=== PATIENT | female | born 1965 | race Two or more races ===

== ENCOUNTER → 2023-05-30 13:53 | Outpatient (REF) | payer OTHER, SELFPAY | LOC: RCS 13:53 | PROVIDERS: ATTENDING PHYSICIAN Internal Medicine Cardiovascular Disease; FAMILY PHYSICIAN Family Medicine | DX: R06.02 Shortness of breath (principal) | CPT/HCPCS: 93306 ==

== ENCOUNTER → 2023-06-06 08:48 | Outpatient (REF) | payer OTHER, SELFPAY | LOC: RCS 08:48 | PROVIDERS: ATTENDING PHYSICIAN Internal Medicine Cardiovascular Disease; FAMILY PHYSICIAN Family Medicine | DX: R06.02 Shortness of breath (principal) | CPT/HCPCS: 93017; 93350 ==